=== PATIENT | male | born 1965 | race Caucasian/White ===

== ENCOUNTER 2018-08-14 09:39 | Emergency (ER) | payer MEDICAID ==
[2018-08-14 09:48] VITALS: BP 143/90
--- NOTE | 2018-08-14 09:55 | EDPHY ---
H & P Stated Complaint: left ear pain Time Seen by Provider: 08/14/18 09:51 HPI/ROS: HPI: This is a 53-year-old male who presents with Chief Complaint: Left ear pain Location: Left ear Quality: Pain Duration: Signs and Sy 2 weeks mptoms: no fever, no nausea, no vomiting, no diarrhea, no urinary symptoms, no chest pain, no shortness of breath, no wheezing, no cough, no sore throat, no neck stiffness, no joint pain, no swollen glands, no ear pain , no rash Timing: Acute, worsening Severity: Moderate Context: Patient returns from a 2 week trip from [place] visiting family with complaints of left inner ear pain and yellowish discharge from his ear for the last 2 weeks. Patient reports that he has had yellowish discharge from his ear over the last 2 weeks. He reports intense pain in his inner ear. Denies any swimming, flying. Patient reports that he has decreased hearing out of his left ear. Denies any fever, facial weakness, tinnitus, trismus. He did use [id number] eyedrops in his left ear for the pain with mild relief. Modifying Factors: See above Comment: ROS: A comprehensive 10 system review of systems is otherwise negative aside from elements mentioned in the history of present illness. MEDICAL/SURGICAL/SOCIAL HISTORY: Medical history: Bipolar disorder Surgical history: Denies Social history: . Current every day smoker. Family history noncontributory. CONSTITUTIONAL: Polite and cooperative middle-aged white male, awake and alert , no obvious distress HEENT: Atraumatic and normocephalic, PERRL, EOMI. Nares patent; no rhinorrhea; no nasal mucosal edema. Right Tympanic membranes clear. Left external auditory canal is 50% occluded with whitish macerated discharge; left tympanic membrane is red and bulging with skewing of borders. Oropharynx clear, no exudate and moist pink mucosa. Airway patent. No lymphadenopathy. No meningismus. Cardiovascular: Normal S1/S2, regular rate, regular rhythm, without murmur rub or gallop. PULMONARY/CHEST: Symmetrical and nontender. Clear to auscultation bilaterally. Good air movement. No accessory muscle usage. ABDOMEN: Soft, nondistended, nontender, no rebound, no guarding, no peritoneal signs, no masses or organomegaly. No CVAT. EXTREMITIES: 2/2 pulses, strength 5/5, no deformities, no clubbing, no cyanosis or edema. NEUROLOGICAL: no focal neuro deficits. GCS 15. SKIN: Warm and dry, no erythema. no rash. Good capillary refill. Source: Patient, Family ([place]) Exam Limitations: No limitations - Personal History Tetanus Vaccine Date: unsure - Medical/Surgical History Hx Asthma: No Hx Chronic Respiratory Disease: No Hx Diabetes: No Hx Cardiac Disease: No Hx Renal Disease: No Hx Cirrhosis: No Hx Alcoholism: No Hx HIV/AIDS: No Hx Splenectomy or Spleen Trauma: No Other PMH: bipolar - Social History Smoking Status: Current every day smoker Constitutional: Initial Vital Signs Temperature (C) 36.8 C 08/14/18 09:46 Heart Rate 78 08/14/18 09:46 Respiratory Rate 18 08/14/18 09:46 Blood Pressure 143/90 H 08/14/18 09:46 O2 Sat (%) 96 08/14/18 09:46 O2 Delivery Mode Room Air Allergies/Adverse Reactions: Penicillins Allergy (Verified 08/14/18 09:46) Home Medications: Medication Instructions Recorded Invega 3mg ER (RX) 08/26/14 Cefdinir [Omnicef (*)] 300 mg PO BID 10 Days #20 cap 08/14/18 Ofloxacin 0.3% [Ocuflox 0.3%] 2 drops OP QID 7 Days #1 opht.btl 08/14/18 oxyCODONE/APAP 5/325 [Percocet 1 - 2 tab PO Q4H PRN #12 tab 08/14/18 5/325 (*)] Medical Decision Making ED Course/Re-evaluation: Vital signs reviewed and stable upon arrival. No systemic signs. No signs of facial cellulitis, tympanic membrane perforation Will treat for otitis media and otitis externa with Omnicef and ofloxacin drops penicillin allergy ENT referral given This patient was seen under the supervision of my primary supervising physician. I evaluated care for this patient independently. Differential Diagnosis: Differential diagnosis includes but is not limited to otitis media, otitis externa, cholesteatoma, malignancy. Departure - Departure Disposition: Home, Routine, Self-Care Clinical Impression: Left acute otitis media Left otitis externa Qualifiers: Otitis externa type: swimmer's ear Chronicity: acute Qualified Code(s): H60.332 - Swimmer's ear, left ear Condition: Good Instructions: Ear Infection (ED), Otitis Externa (ED) Additional Instructions: Take all antibiotics as prescribed. Do not skip a dose. Place a cotton ball into external auditory canal while showering. Take Tylenol 650 mg every 4 hours and/or Ibuprofen 600 mg every 8 hours with food as needed for pain. Use Percocet every 6 hours as needed for severe/break through pain. Do not use Tylenol and Percocet concomitantly. Not swim or take a bath until infection has cleared. If symptoms do not improve in the next 7 days follow-up with ear nose and throat. Referrals: Octavia Osullivan, [facility] [Primary Care Provider] - As per Instructions Matt Wagner MD [Medical Doctor] - As per Instructions Prescriptions: Cefdinir [Omnicef (*)] 300 mg PO BID 10 Days #20 cap Ofloxacin 0.3% [Ocuflox 0.3%] 2 drops OP QID 7 Days #1 opht.btl oxyCODONE/APAP 5/325 [Percocet 5/325 (*)] 1 - 2 tab PO Q4H PRN #12 tab PRN Reason: Pain, Severe
== END 2018-08-14 10:11 | disposition home or self-care (01) ==
DX: H66.92 Otitis media, unspecified, left ear (principal); H60.332 Swimmer's ear, left ear

== ENCOUNTER 2018-08-22 11:25 | Emergency (ER) | payer MEDICAID ==
--- NOTE | 2018-08-22 12:51 | EDPHY ---
H & P Stated Complaint: rectal pain and bleeding/also continued pain/redness l ear Time Seen by Provider: 08/22/18 12:46 HPI/ROS: HPI CHIEF COMPLAINT: Rectal pain, rectal bleeding HISTORY OF PRESENT ILLNESS: Patient is a 53-year-old male, otherwise healthy, presents emergency room with rectal pain and rectal bleeding that got worse today. Patient states he woke up and had some rectal pain. He has been recently straining. He is unsure if these are hemorrhoids. He had bright red blood per rectum. No vomiting blood no melena. No fever. No abdominal pain Past Medical History: Denies significant medical history Past Surgical History: Denies significant surgical history Social History: Denies daily use of drugs alcohol tobacco. Family History: Noncontributory ROS REVIEW OF SYSTEMS: 10 Systems were reviewed and negative with the exception of the elements mentioned in the history of present illness. Exam Constitutional triage nursing summary reviewed, vital signs reviewed, awake/ alert. Eyes normal conjunctivae and sclera, EOMI, PERRLA. HENT normal inspection, atraumatic, moist mucus membranes, no epistaxis, neck supple/ no meningismus, no raccoon eyes. Respiratory clear to auscultation bilaterally, normal breath sounds, no respiratory distress, no wheezing. Cardiovascular rate normal, regular rhythm, no murmur, no edema, distal pulses normal. Gastrointestinal Rectal Exam: Performed: Cindy at bedside as air sampling and monitoring. This shows external hemorrhoids. Soft and boggy. No significant bleeding. No thrombosed hemorrhoids. Mild pain. There hemorrhoids approximately 3 of them. They were soft and reducible. soft, non-tender, no rebound, no guarding, normal bowel sounds, no distension, no pulsatile mass. Genitourinary no CVA tenderness. Musculoskeletal no midline vertebral tenderness, full range of motion, no calf swelling, no tenderness of extremities, no meningismus, good pulses, neurovascularly intact. Skin pink, warm, & dry, no rash, skin atraumatic. Neurologic awake, alert and oriented x 3, AAOx3, moves all 4 extremities equally, motor intact, sensory intact, CN II-XII intact, normal cerebellar, normal vision, normal speech. Psychiatric normal mood/affect. Heme/Lymph/Immune no lymphadenopathy. Differential Diagnosis: Includes but is not limited to in a particular order: Hemorrhoidal pain, external hemorrhoids Medical Decision Making: Plan for this patient recommend stool softeners, no straining, hemorrhoidal cream and general surgery referral. These are unable to be cut open as they are not thrombosed they are soft and boggy. They were able to be reduced Additionally discussed return precautions. He understands return emergency room if develops worsening pain, further bleeding, not doing well. Source: Patient - Personal History Current Tetanus Diphtheria and Acellular Pertussis (TDAP): Yes Tetanus Vaccine Date: unsure - Medical/Surgical History Hx Asthma: No Hx Chronic Respiratory Disease: No Hx Diabetes: No Hx Cardiac Disease: No Hx Renal Disease: No Hx Cirrhosis: No Hx Alcoholism: No Hx HIV/AIDS: No Hx Splenectomy or Spleen Trauma: No Other PMH: bipolar - Social History Smoking Status: Current every day smoker Constitutional: Initial Vital Signs Temperature (C) 36.5 C 08/22/18 11:28 Heart Rate 74 08/22/18 11:28 Respiratory Rate 18 08/22/18 11:28 Blood Pressure 158/92 H 08/22/18 11:28 O2 Sat (%) 98 08/22/18 11:28 O2 Delivery Mode Room Air Allergies/Adverse Reactions: Penicillins Allergy (Verified 08/22/18 11:27) Home Medications: Medication Instructions Recorded Invega 3mg ER (RX) 08/26/14 Cefdinir [Omnicef (*)] 300 mg PO BID 10 Days #20 cap 08/14/18 Ofloxacin 0.3% [Ocuflox 0.3%] 2 drops OP QID 7 Days #1 opht.btl 08/14/18 oxyCODONE/APAP 5/325 [Percocet 1 - 2 tab PO Q4H PRN #12 tab 08/14/18 5/325 (*)] Docusate Sodium [Dulcolax Stool 100 mg PO DAILY #10 capsule 08/22/18 Softener] Hydrocortisone/Pramoxine 10 gm RC BID #1 foam 08/22/18 [Proctofoam-Hc 1%-1% Foam] Departure - Departure Disposition: Home, Routine, Self-Care Clinical Impression: Hemorrhoids Condition: Good Instructions: Hemorrhoids (ED), Rectal Bleeding (ED) Additional Instructions: 1. Do not strain. 2. Stool softener 3. Hemorrhoidal cream 4. Follow up with surgery 5. Return to the emergency room if worse. 6. Sit on a Donut. Referrals: Octavia Osullivan PAC [Primary Care Provider] - As per Instructions Alonso Johns MD [Medical Doctor] - As per Instructions Prescriptions: Docusate Sodium [Dulcolax Stool Softener] 100 mg PO DAILY #10 capsule Hydrocortisone/Pramoxine [Proctofoam-Hc 1%-1% Foam] 10 gm RC BID #1 foam
[2018-08-22] MEDS ORDERED: IBUPROFEN 800 MG TAB PO ONE (12:53)
[2018-08-22 13:13] VITALS: BP 132/87
== END 2018-08-22 13:12 | disposition home or self-care (01) ==
DX: K64.9 Unspecified hemorrhoids (principal)

== ENCOUNTER 2018-10-24 16:44 | Inpatient (IN) | payer MEDICAID | END 2018-10-29 12:21 | disposition home or self-care (01) | LOC: F2W 18:50 ==